=== PATIENT | female | born 1990 | race Caucasian/White ===

== ENCOUNTER 2017-04-22 21:18 | Emergency (ER) | payer SELFPAY ==
[2017-04-22 21:22] VITALS: O2SAT 97
[2017-04-22] MEDS ORDERED: NS 1,000 ML IV ONE (21:41)
--- NOTE | 2017-04-22 21:47 | EDPHY ---
H & P Time Seen by Provider: 04/22/17 21:43 HPI/ROS: HPI: MS. Beltran is a 26 yrs, female who presents with Chief Complaint: Pelvic cramping Location: pelvic Quality: cramping Duration: 1 day Signs and Symptoms: + dark brown vaginal discharge, + pelvic cramping, no nausea , no vomiting, no dysuria, no fever Timing: Acute onset, intermittent Severity: Moderate Context: LMP: February 092016. She is approximately 10 weeks . . No complications with prior and delivered vaginally. Patient reports that she had sexual intercourse with her approximately 4 days ago. 12 hours later she started to experience lower abdominal/pelvic cramping that was intermittent in nature accompanied by dark brown vaginal discharge. Patient adamantly denies vaginal bleeding. No prior history of miscarriages. Able to eat and drink normally. Does not have an OBGYN established. unsure of blood type. Modifying Factors: Comment: ROS: Eyes: No blurred vision Respiratory: No shortness of breath, no cough Cardiovascular: No chest pain Gastrointestinal: No nausea, no vomiting no diarrhea Genitourinary: No dysuria Extremities: No myalgias Neurologic: No weakness, no numbness Skin: No rashes Hematologic: No bruising, no bleeding MEDICAL/SURGICAL HISTORY: Generally healthy. Social History: . Nonsmoker. Smoking Status: Never smoked Physical Exam: CONSTITUTIONAL: Extremely well-appearing adult female, accompanied by , awake and alert, no obvious distress HEENT: Atraumatic and normocephalic, PERRL, EOMI. Tympanic membranes clear. Oropharynx clear, no exudate and moist pink mucosa. Airway patent. No lymphadenopathy. No meningismus. Cardiovascular: Normal S1/S2, regular rate, regular rhythm, without murmur rub or gallop. PULMONARY/CHEST: Symmetrical and nontender. Clear to auscultation bilaterally Good air movement. No accessory muscle usage. ABDOMEN: Soft, nondistended, mild lower abdominal reproducible tenderness, no rebound, no guarding, no peritoneal signs, no masses or organomegaly. No CVAT. PELVIC: normal external genitalia, normal cervix, cervical os small opening, no cervical motion tenderness, no adnexal mass, no discharge, scant bright red bleeding. The exam was performed with a sap crm developer. EXTREMITIES: 2/2 pulses, no deformities, no clubbing, no cyanosis or edema. NEUROLOGICAL: no focal neuro deficits. GCS 15. SKIN: Warm and dry, no erythema. no rash. Good capillary refill. Constitutional: Initial Vital Signs Temperature (C) 36.8 C 04/22/17 21:19 Heart Rate 74 04/22/17 21:19 Respiratory Rate 18 04/22/17 21:19 Blood Pressure 118/83 H 04/22/17 21:19 O2 Sat (%) 97 04/22/17 21:19 O2 Delivery Mode Room Air Allergies/Adverse Reactions: No Known Allergies Allergy (Unverified 01/25/14 20:33) Medical Decision Making ED Course/Re-evaluation: Urinalysis, labs, IV fluids, pelvic exam, Ob ultrasound less than 14 weeks UA does not show infection, no ketones Blood type; A Positive Called by radiologist shows ultrasound shows intrauterine with a yolk sac, measuring 6 weeks 3 days. Unable to fully visualize a strong heart rate in M-mode Advised patient of threatened miscarriage; patient will need OB follow-up in 3 days for repeat HCG levels and repeat ultrasound Differential Diagnosis: Abdominal pain in a female including but not limited to ovarian cyst, pelvic inflammatory disease, ovarian torsion, urinary tract infection, miscarriage and appendicitis. - Data Points Laboratory Results: Laboratory Results 04/22/17 21:49 04/22/17 21:49 04/22/17 04/22/17 04/22/17 21:49 21:49 21:49 WBC RBC Hgb Hct MCV MCH MCHC RDW Plt Count MPV Neut % (Auto) Lymph % (Auto) Nash % (Auto) Eos % (Auto) Baso % (Auto) Nucleat RBC Rel Count Absolute Neuts (auto) Absolute Lymphs (auto) Absolute Monos (auto) Absolute Eos (auto) Absolute Basos (auto) Absolute Nucleated RBC Immature Gran % Immature Gran # Sodium 138 mEq/L mEq/L (134-144) Potassium 3.9 mEq/L mEq/L (3.5-5.2) Chloride 102 mEq/L mEq/L (97-110) Carbon Dioxide 21 mEq/l L mEq/l (22-31) Anion Gap 15 mEq/L mEq/L (8-16) BUN 13 mg/dL mg/dL (7-23) Creatinine 0.6 mg/dL mg/dL (0.6-1.0) Estimated GFR > 60 Glucose 93 mg/dL mg/dL (70-100) Calcium 10.0 mg/dL mg/dL (8.5-10.4) Beta HCG, Qual POSITIVE Beta HCG, Quant 26573.00 mIU/mL H mIU/mL (0.00-4.83) Urine Color Urine Appearance Urine pH Ur Specific [place] Urine Protein Urine Ketones Urine Blood Urine Nitrate Urine Bilirubin Urine Urobilinogen Ur Leukocyte Esterase Urine RBC Urine WBC Ur Epithelial Cells Urine Mucus Urine Glucose Patient ABO/Rh A POSITIVE 04/22/17 04/22/17 21:49 19:30 WBC 12.87 10^3/uL H 10^3/uL (3.80-9.50) RBC 4.60 10^6/uL 10^6/uL (4.18-5.33) Hgb 14.6 g/dL g/dL (12.6-16.3) Hct 42.0 % % (38.0-47.0) MCV 91.3 fL fL (81.5-99.8) MCH 31.7 pg pg (27.9-34.1) MCHC 34.8 g/dL g/dL (32.4-36.7) RDW 12.5 % % (11.5-15.2) Plt Count 327 10^3/uL 10^3/uL (150-400) MPV 8.6 fL L fL (8.7-11.7) Neut % (Auto) 63.4 % % (39.3-74.2) Lymph % (Auto) 28.4 % % (15.0-45.0) Nash % (Auto) 5.7 % % (4.5-13.0) Eos % (Auto) 1.9 % % (0.6-7.6) Baso % (Auto) 0.3 % % (0.3-1.7) Nucleat RBC Rel Count 0.0 % % (0.0-0.2) Absolute Neuts (auto) 8.16 10^3/uL H 10^3/uL (1.70-6.50) Absolute Lymphs (auto) 3.66 10^3/uL H 10^3/uL (1.00-3.00) Absolute Monos (auto) 0.73 10^3/uL 10^3/uL (0.30-0.80) Absolute Eos (auto) 0.24 10^3/uL 10^3/uL (0.03-0.40) Absolute Basos (auto) 0.04 10^3/uL 10^3/uL (0.02-0.10) Absolute Nucleated RBC 0.00 10^3/uL 10^3/uL (0-0.01) Immature Gran % 0.3 % % (0.0-1.1) Immature Gran # 0.04 10^3/uL 10^3/uL (0.00-0.10) Sodium Potassium Chloride Carbon Dioxide Anion Gap BUN Creatinine Estimated GFR Glucose Calcium Beta HCG, Qual Beta HCG, Quant Urine Color YELLOW Urine Appearance CLEAR Urine pH 7.0 (5.0-7.5) Ur Specific [place] 1.018 (1.002-1.030) Urine Protein NEGATIVE (NEGATIVE) Urine Ketones NEGATIVE (NEGATIVE) Urine Blood 1+ H (NEGATIVE) Urine Nitrate NEGATIVE (NEGATIVE) Urine Bilirubin NEGATIVE (NEGATIVE) Urine Urobilinogen NEGATIVE EU EU (0.2-1.0) Ur Leukocyte Esterase NEGATIVE (NEGATIVE) Urine RBC 1-3 /hpf /hpf (0-3) Urine WBC 1-3 /hpf /hpf (0-3) Ur Epithelial Cells TRACE /lpf /lpf (NONE-1+) Urine Mucus TRACE /lpf /lpf (NONE-1+) Urine Glucose NEGATIVE (NEGATIVE) Patient ABO/Rh Medications Given: Discontinued Medications Sodium Chloride (Ns) 1,000 mls @ 0 mls/hr IV ONCE ONE; Wide Open PRN Reason: Protocol Stop: 04/22/17 21:42 Last Admin: 04/22/17 21:52 Dose: 1,000 mls Departure - Departure Disposition: Home, Routine, Self-Care Clinical Impression: Threatened miscarriage in early Condition: Good Instructions: Miscarriage (ED), Threatened Miscarriage (ED) Referrals: [facility] [Other] - As per Instructions Zohreh Walker MD [Medical Doctor] - 2-3 days, call for appt.
[2017-04-22 21:56] LABS: COLOR YELLOW; LEUKOCYTE ESTERASE,URINE NEGATIVE (NEGATIVE); NITRITE,URINE NEGATIVE (NEGATIVE)
[2017-04-22 21:59] LABS: MUCUS TRACE /lpf (NONE-1+)
[2017-04-22 22:02] LABS: % IMMATURE GRANULYOCYTES 0.3 % (0.0-1.1); ABSOLUTE IMMATURE GRANULOCYTES 0.04 10^3/uL (0.00-0.10); ADD DIFF? NO; ADD MORPH? NO; ADD SCAN? NO; ATYPICAL LYMPHOCYTE FLAG 10 (0-99); FRAGMENT RBC FLAG 0 (0-99); HEMOGLOBIN 14.6 g/dL (12.6-16.3); LEFT SHIFT FLG 0 (0-99); LIPEMIA HEMOLYSIS FLAG 90 (0-99); MEAN CELL HEMOGLOBIN 31.7 pg (27.9-34.1); MEAN CELL HEMOGLOBIN CONCENTR. 34.8 g/dL (32.4-36.7); MEAN CELL VOLUME 91.3 fL (81.5-99.8); MEAN PLATELET VOLUME 8.6 fL (8.7-11.7); PLATELET CLUMPS FLAG 0 (0-99); PLATELET COUNT 327 10^3/uL (150-400); RED CELL DISTRIBUTION WIDTH 12.5 % (11.5-15.2)
[2017-04-22 22:17] LABS: ANION GAP 15 mEq/L (8-16); CARBON DIOXIDE 21 mEq/l (22-31); CHLORIDE 102 mEq/L (97-110); CREATININE 0.6 mg/dL (0.6-1.0); GLOMERULAR FILTRATION RATE > 60; GLUCOSE 93 mg/dL (70-100); POTASSIUM 3.9 mEq/L (3.5-5.2); SODIUM 138 mEq/L (134-144)
[2017-04-22 23:44] VITALS: BP 116/76; PULSE 78; RESP 16; TEMP 98.1
== END 2017-04-22 23:45 | disposition home or self-care (01) ==
DX: O20.0 Threatened abortion (principal); R10.2 Pelvic and perineal pain; E86.9 Volume depletion, unspecified; Z3A.10 10 weeks gestation of pregnancy

== ENCOUNTER → 2019-02-05 | Outpatient (CLI) | payer MEDICAID | LOC: FIMAGING 09:36 ==